=== PATIENT | male | born 1965 | race Caucasian/White ===

== ENCOUNTER 2016-10-24 15:52 | Emergency (ER) | payer BC ==
[2016-10-24 16:11] VITALS: BP 124/66
[2016-10-24] MEDS ORDERED: Ondansetron ODT TAB* 4 MG PO ONE (16:30)
--- NOTE | 2016-10-24 16:34 | UC ---
Abdominal Pain Male HPI - HPI Summary HPI Summary: Day 3 of nausea, vomiting and diarrhea, no known fevers, but chills and cold sweats, Blood sugars 250-280 mg/dl. has watery stool no blood noted in stool or emesis - History of Current Complaint Chief Complaint: UCGI Stated Complaint: VOMITING/DIARRHEA Time Seen by Provider: 10/24/16 16:24 Hx Obtained From: Patient Onset/Duration: Sudden Onset, Lasting Days - 3, Still Present Timing: Constant Severity Initially: Moderate Severity Currently: Moderate Pain Intensity: 8 Pain Scale Used: 0-10 Numeric Location: Diffuse Radiates: No Character: Colicy, Cramping Aggravating Factor(s):: Food Alleviating Factor(s): Nothing Associated Signs And Symptoms: Positive: Decreased Appetite, Nausea, Vomiting, Diarrhea. Negative: Chest Pain, Blood in Stool, Urinary Symptoms - Allergies/Home Medications Allergies/Adverse Reactions: Allergies Allergy/AdvReac Type Severity Reaction Status Date / Time Sulfa Drugs Allergy Rash Verified 10/24/16 16:11 PMH/Surg Hx/FS Hx/Imm Hx Previously Healthy: No - Chronic pain Endocrine History Of: Reports: Diabetes - type 2 Psychological History Of: Reports: Anxiety, Depression - Surgical History Surgical History: Yes Surgery Procedure, Year, and Place: right thumb pinning, L3-4 decompression, dorsal column stimulator Feb 2012. revision of DCS in 07/2012 - Family History Known Family History: Positive: None - Social History Occupation: Employed Full-time Lives: With Family Alcohol Use: None Substance Use Type: None Substance Use Comment - Amount & Last Used: oxycodone Smoking Status (MU): Former Smoker Type: Cigars, Smokeless Tobacco Length of Time of Smoking/Using Tobacco: 35 + yrs Have You Smoked in the Last Year: Yes When Did the Patient Quit Smoking/Using Tobacco: unknown. states he quit 20 years ago Review of Systems Constitutional: Chills, Fatigue Skin: Negative Eyes: Negative ENT: Negative Respiratory: Negative Cardiovascular: Negative Gastrointestinal: Abdominal Pain, Vomiting, Diarrhea Genitourinary: Negative Motor: Negative Neurovascular: Negative Musculoskeletal: Negative Neurological: Negative Psychological: Negative All Other Systems Reviewed And Are Negative: Yes Physical Exam Triage Information Reviewed: Yes Appearance: Ill-Appearing, Pain Distress, Obese Vital Signs: Initial Vital Signs Temp 98.3 F 10/24/16 16:04 Pulse 88 10/24/16 16:04 Resp 18 05/29/17 16:04 BP 124/66 10/24/16 16:04 Pulse Ox 98 10/24/16 16:04 Vital Signs Reviewed: Yes Eye Exam: Normal Eyes: Positive: Conjunctiva Clear ENT Exam: Normal ENT: Positive: Normal ENT inspection, Hearing grossly normal, Pharynx normal, TMs normal. Negative: Nasal congestion, Nasal drainage, Tonsillar swelling, Tonsillar exudate, Trismus, Muffled/hoarse voice Dental Exam: Normal Neck exam: Normal Neck: Positive: Supple, Nontender, No Lymphadenopathy Respiratory Exam: Normal Respiratory: Positive: Chest non-tender, Lungs clear, Normal breath sounds, No respiratory distress, No accessory muscle use Cardiovascular Exam: Normal Cardiovascular: Positive: RRR, No Murmur, Pulses Normal, Brisk Capillary Refill Abdominal Exam: Normal Abdomen Description: Positive: No Organomegaly, Distended. Negative: CVA Tenderness (R), CVA Tenderness (L), Guarding, Hernia @, Hepatomegaly, McBurney' s Point Tenderness, Peritoneal Signs Bowel Sounds: Positive: Present Musculoskeletal Exam: Normal Musculoskeletal: Positive: Strength Intact, ROM Intact, No Edema Neurological Exam: Normal Neurological: Positive: Alert, Muscle Tone Normal Psychological Exam: Normal Skin Exam: Normal Abd Pain Male Course/Dx - Course Course Of Treatment: tranfer to [facility] by Private car---NPO, zofran prior to discharge - Differential Dx/Clinical Impression Differential Diagnosis/HQI/PQRI: Appendicitis, Bowel Obstruction, Constipation, Gall Bladder Disease, Ischemic Bowel, Urinary Tract Infection Provider Diagnoses: Acute nausea,vomiting, diarrhea, IDDM - Physician Notification/Consults Discussed Patient Care With: Dr. Sai Bhandari Time Discussed With Above Provider: 16:35 Instructed by Provider To: Transfer Discharge - Discharge Plan Condition: Guarded Disposition: AGAINST MEDICAL ADVICE
== END 2016-10-24 16:46 | disposition left against medical advice (07) ==
LOC: UCCORT 15:52
DX: R11.2 Nausea with vomiting, unspecified (principal); R19.7 Diarrhea, unspecified; E11.9 Type 2 diabetes mellitus without complications; F41.9 Anxiety disorder, unspecified; F33.9 Major depressive disorder, recurrent, unspecified; Z87.891 Personal history of nicotine dependence; E66.9 Obesity, unspecified; Z88.2 Allergy status to sulfonamides
CPT/HCPCS: 99213; A9270-GY; G0463